=== PATIENT | female | born 1970 | race Caucasian/White ===

== ENCOUNTER 2022-09-15 12:38 | Emergency (ER) | payer OTHER ==
[~2022-09-15] VITALS: Ht 170.2 cm; Wt 83.9 kg
[2022-09-15 12:38] VITALS: BP_SYST 158
[2022-09-15] MEDS ORDERED: DIPHENHYDRAMINE INJ 50 MG/ML VIAL IM ONE (12:45)
[2022-09-15] MEDS ORDERED: FAMOTIDINE 20 MG TABLET PO ONE (12:45)
[2022-09-15] MEDS ORDERED: methylPREDNISolone SOD SUCC/PF 62.5 MG/ML VIAL IVP ONE (12:45)
[2022-09-15] MEDS ORDERED: EPINEPHrine HCL 1 MG/ML VIAL IM ONE (12:45)
[2022-09-15] MEDS ORDERED: EPINEPHRINE HCL/PF 1 MG/ML AMP ONE (12:53)
[2022-09-15] MEDS ORDERED: DIPHENHYDRAMINE INJ 50 MG/ML VIAL IVP ONE (13:15)
[2022-09-15] MEDS ORDERED: FAMOTIDINE PF 20 MG/2 ML VIAL IVP ONE (13:15)
[2022-09-15] MEDS ORDERED: EPIN0.3P3 IM (15:54)
[2022-09-15] MEDS ORDERED: BEN50 PO (15:54)
[2022-09-15] MEDS ORDERED: FAMO20TA8 PO (15:54)
[2022-09-15] MEDS ORDERED: PRED20TA PO (15:54)
[2022-09-15 16:12] VITALS: BP_SYST 124
== END 2022-09-15 16:15 | disposition home or self-care (01) ==
LOC: SED 12:38
DX: T78.2XXA Anaphylactic shock, unspecified, initial encounter (principal); T78.40XA Allergy, unspecified, initial encounter; R05.9 Cough, unspecified; J02.9 Acute pharyngitis, unspecified; Z79.899 Other long term (current) drug therapy; X58.XXXA Exposure to other specified factors, initial encounter
CPT/HCPCS: 99284; 96374; 96375; 96372; J1200; J0171; J3490; J2930